=== PATIENT | male | born 1970 | race Caucasian/White ===

== ENCOUNTER → 2016-05-26 | Outpatient (CLI) | payer OTHER ==
[~2016-05-26] VITALS: Ht 177.8 cm; Wt 126.0 kg
[~2016-05-26] MED LIST: CARI250T PO; SIMV10TA2 PO
[2016-05-26 09:14] VITALS: BP 147/88; PULSE 66; Ht 177.8 cm; Wt 126.0 kg
== END | disposition home or self-care (01) ==
LOC: C.NEUR 09:00
PROVIDERS: ATTEND Internal Medicine Pulmonary Disease
DX: G47.33 Obstructive sleep apnea (adult) (pediatric) (principal)

== ENCOUNTER → 2016-07-01 | Outpatient (CLI) | payer OTHER ==
--- NOTE | 2016-07-02 05:45 | PAP/PSG TECHNICIAN REPORT ---
[facility] Food And Beverage Coordinator Polysomnogram Report Study name: None Report date: 07/02/2016 Study date: 07/01/2016 Referring Physician: JACKY RAYA DO, DO Name: JESSICA BLANTON Interpreting Physician: Jacky Raya D.O. Date of : 1970 Food And Beverage Coordinator: Shruti Eng [facility]. Sex: Male Age: 46 StudyType: PSG Weight: 277 lbs Height: 46 years, Height 5' 10" Neck Circum: 19 inches BMI: 39.74 Medications: Simvastatin 20 mg Patient History 46 yr. old male here for a diagnostic sleep study. Patient complains of loud snoring. Patients [place] sleepiness scale score is 0/24. * Patient has had congestion/cold since 06/30/16, he said he cannot breathe from his nose. Parameters Monitored NPSG: E1-M2, E2-M1, Fp1-M2, Fp2-M1, F3-M2, F4-M2, F4-M1, C3-M2, C4-M2, C4-M1, O1-M2, O2-M2, O2-M1, T3-M2, T4-M1, P3-M2, P4-M1, CHIN1, CHIN2, HR, EKG, Legs, PFLOW, SNOR, FLOW, CFLOW, Tidal Volume, THOR, ABDO, SpO2, PLTH, CPRESS, ETCO2 Wave, ETCO2, pH Sleep Architecture Sleep Stages Time at Lights Off 10:02:28 PM STAGES Time (min.) TST (%) Time at Lights On 5:27:58 AM Wake 30.5 -- Total Recording Time (TRT) 445.50 min. N1 24.5 6 Total Sleep Period (TSP) 439.0 min. N2 262.0 63 Total Sleep Time (TST) 415.0min. N3 41.0 10 Awake Time 30.5 min. REM 87.5 21 Wake after Sleep Onset 24.0 min. Sleep Efficiency (SE) 93 % Sleep Onset Latency (ASHOK) 6.5 min. Number of Stage 1 Shifts None Awakenings 27 Stage Changes 107 Number of REM periods 6 REM 87.5 21 REM Latency 90.5 min. NREM 327.5 79 Body Position Analysis Supine Right Left Side Prone Vertical Total Sleep Time (min.) 88.7 209.6 123.8 333.42 0.0 11.0 Total Sleep Time (%) 19% 51% 30% 80 0% 100% Total Sleep Time REM (min.) 0.0 68.0 19.5 None 0.0 0.0 Total Sleep Time NREM (min.) 79.6 141.6 104.3 None 0.0 2.0 Intermittent Wake (min.) 9.2 10.7 1.6 None 0.0 9.0 Total Sleep Period (%) 20% None None None None None Arousals Myoclonus (PLM) * Events Count Index Events Count Index Spontaneous 3 0 Events Awake (PLMW) 49 96.4 Respiratory 13 2.0 Events Asleep w/ Arousal (PLMA) 15 2.2 PLM 13 2 Events Asleep w/o Arousal (PLMS) 184 26.6 Snoring 28 4 Total Asleep 199 28.8 Total 55 8 Total 248 33 Respiratory Analysis * CA OA MA CH H RERA Total Count 0 12 0 0 95 0 107 Index 0.0 1.7 0.0 0 13.7 0 15.5 Mean Duration 0.0 16.4 0.0 0.00 24.3 0.0 23.4 Longest Duration 0.0 22.8 0.0 0.00 0.0 0.0 56.2 Respiratory Event Summary Total Supine ~Supine Right Left Prone REM NREM Apneas Count 12 9 3 1 2 N/A 1 11 Index 1.7 7 1 0.3 1.0 N/A 1 2 Hypopneas (4% Desat) Count 95 57 38 33 5 N/A 13 82 Index 13.7 43.0 7 9.4 2.4 N/A 8.9 15.0 Apneas & All Hypopneas Count 107 66 41 34 7 N/A 14 93 Index 15.5 50 7 10 3 N/A 9.6 17.0 Respiratory Events (Statistical Assistant+All Hyp+RERA) Count 107 66 41 34 7 N/A 14 93 Index 15.5 50 7 9.7 3.4 N/A 9.6 17.0 Respiratory Related Arousal Count 13 66 4 2 2 N/A 1 13 Index 2.0 8 1 1 1 N/A 1 2 Snoring Analysis Supine Right Left Prone REM NREM Total Snore duration 93.2 min Snores count 959 1,612 1,282 N/A 262 3,591 3,853 Snore mean duration 1.5 Sec Snores index 723 461 621 N/A 179.7 657.9 557.1 TST with snoring (%) 22.5% Desaturation Event Summary: Minimum %SpO2 Event Count Mean/Min/Max Duration(sec.) Desaturation Index % Time In Bed > 90 115 25.2 / 6.5 / 60.0 20.9 74.1 86 - 90 12 17.3 / 7.8 / 27.5 6.3 25.8 81 - 85 0 N/A 0.0 0.1 76 - 80 0 N/A 0.0 0.0 71 - 75 0 N/A 0.0 0.0 66 - 70 0 N/A 0.0 0.0 61 - 65 0 N/A 0.0 0.0 56 - 60 0 N/A 0.0 0.0 51 - 55 0 N/A 0.0 0.0 < 50 0 N/A 0.0 0.0 Total REM NREM Awake <50% 0.0 min. 0.0 min. 0.0 min. 0.0 min. 51 - 60% 0.0 min. 0.0 min. 0.0 min. 0.0 min. 61 - 70% 0.0 min. 0.0 min. 0.0 min. 0.0 min. 71 - 80% 0.0 min. 0.0 min. 0.0 min. 0.0 min. 81 - 90% 115.4 min. 13.4 min. 97.6 min. 4.5 min. 91 - 100% 330.0 min. 74.1 min. 229.9 min. 25.9 min. Average 92 92 91 92 Minimum SpO2 84 87 84 85 Desaturation Event Index 15.6 8.9 17.4 15.7 # Desat. Events below 89% 40 4 34 2 Time(%) with Saturation below 89% 2.1 0.3 1.5 0.3 Time(min.) with Saturation below 89% 9.2 1.1 6.6 1.5 Time (mins) REM (mins) NREM (mins) % of TST SpO2 Below 90% 93 10 N83 8.8 SpO2 Below 88% 14 0 0 0 Heart Rate Analysis Min (bpm) Max (bpm) Average (bpm) Awake 54 90 65 NREM 49 87 60 REM 50 71 60 Overall 49 87 60 Supplemental O2 Values Minimum O2 level: None Value Start Time End Time Food And Beverage Coordinator Comments Mr. Blanton slept in the right, left, and supine positions. No cardiac arrhythmia or PLMs noted. No bruxism noted. Snoring was noted and scored as a 4 on a scale of 0 through 5. (0=no snoring, 5=snoring loud enough to be heard through a closed door or down the [address] way) Mr. Blanton did not wake to use the restroom during the night. Mr. Blanton stated, "That was a long night" The final report will be interpreted and signed by a sleep physician. The completed physician report will then be placed in the patient medical record. Therapy (cm H2O) 0 TIB (min.) 445.5 TST (min.) 415.0 Sleep Onset (min.) 6.5 REM Onset From Sleep (min.) 90.5 Sleep Efficiency % 93 Wakefulness (%) 7 Wakefulness (min.) 30.5 NREM 1 (%) 6 NREM 1 (min.) 24.5 NREM 2 (%) 63 NREM 2 (min.) 262.0 NREM 3 (%) 10 NREM 3 (min.) 41.0 REM (%) 21 REM (min.) 87.5 # Arousals 55 Arousal Index 8 # Snore 3,853 Snore Index 557.1 AHI 15.5 AHI Supine 50 AHI Non-Supine 7 NREM AHI 17.0 REM AHI 9.6 RDI 15.5 # Obstructive Apnea 12 # Central Apnea 0 # Mixed Apnea 0 # Hypopneas 95 RERAs 0 Total Respiratory Events 110 Time Below SpO2 89% (min.) 7.8 Mean NREM SpO2 (%) 91 Mean REM SpO2 (%) 92 Mean Sleep SpO2 (%) 92 Min NREM SpO2 (%) 84 Min REM SpO2 (%) 87 Position Supine (min.) 88.7 Position Non-supine (min.) 335.4 LM Index Sleep 28.8 LM Index NREM 35.5 LM Index REM 3.4 Mean Heart Rate (bpm) 60 Min Heart Rate (bpm) 49
--- NOTE | 2016-07-05 09:28 | POLYSOMNOGRAPH REPORT ---
REFERRING PHYSICIAN: Dr. Del Real CLINICAL DATA: The patient is a 46-year-old male with a BMI elevated at 39.74. He is referred by Dr. Del Real. The patient has snoring, disturbed nocturnal sleep, and hypertension. An in-lab overnight sleep study was performed. Hypopneas were scored according to the 4% Rule. SLEEP ARCHITECTURE: The total sleep period was 439.0 minutes. Total sleep time was 415.0 minutes. Sleep efficiency was normal at 93%. The sleep latency was 6.5 minutes. The REM latency was normal at 90.5 minutes. Wake after sleep onset was 24.0 minutes. Sleep consisted of stage N1 of 6%, stage N2 of 63%, stage N3 of 10%, and REM sleep 21%. AROUSAL DATA: The patient had a total of 55 arousals including 3 spontaneous arousals, 13 respiratory arousals, 13 PLM arousals, and 28 snoring arousals. The arousal index was 8 events per hour. PERIODIC LIMB MOVEMENTS DATA: The patient had a total of 199 periodic limb movements of sleep for a PLM index of 28.8. There were only 15 periodic limb movements with arousals for a PLM arousal index of only 2.2 events per hour. ELECTROCARDIOGRAM: The underlying cardiac rhythm was normal sinus. No arrhythmias were observed. The minimum heart rate was 49 and the maximum was 90. The average heart rate was 60. RESPIRATORY DATA: The patient had a total of 107 respiratory events including 12 obstructive apneas and 95 hypopneas. The longest apnea was 22.8 seconds. The apnea hypopnea index was moderately elevated at 15.5 events per hour. OXIMETRY DATA: The minimum saturation for the entire night was 84%. Most of the night his saturations were above 90%. There was a total of 115.4 minutes with saturations between 81% and 90%. There was a total of 14 minutes with saturations less than 88%. SPEECH AND LANGUAGE TUTOR COMMENTS: The patient slept in the right, left, and supine positions. No cardiac arrhythmias. No bruxism. Snoring was noted and scored as a 4 on a scale of 0 through 5. IMPRESSIONS: 1. Obstructive sleep apnea -- moderate. 2. Periodic limb movement disorder. COMMENTS: The patient had a normal sleep efficiency. Sleep architecture was normal. He did have a moderate amount of sleep apnea as noted above. There were oxygen desaturations associated with this. The patient has a history of hypertension and in light of this treatment would be advised. He has a modest number of limb movements, but with few arousals. RECOMMENDATIONS: 1. It is advised that the patient be given a trial of nasal CPAP. 2. The patient has a significantly elevated body mass index of 39.74. A weight reduction program is advised. 3. It is suggested that the patient avoid sleeping in the supine position. 4. Further suggestions may be made following the trial of nasal CPAP. MTDD
== END | disposition home or self-care (01) ==
LOC: C.NEUR 20:00
PROVIDERS: ATTEND Internal Medicine Pulmonary Disease
DX: G47.33 Obstructive sleep apnea (adult) (pediatric) (principal)

== ENCOUNTER → 2016-07-07 | Outpatient (CLI) | payer OTHER ==
[~2016-07-07] VITALS: Ht 177.8 cm; Wt 124.3 kg
[2016-07-07 09:02] VITALS: BP 120/79; PULSE 80; Ht 177.8 cm; Wt 124.3 kg
== END | disposition home or self-care (01) ==
LOC: C.NEUR 08:48
PROVIDERS: ATTEND Internal Medicine Pulmonary Disease
DX: G47.33 Obstructive sleep apnea (adult) (pediatric) (principal)

== ENCOUNTER → 2017-07-12 | Outpatient (CLI) | payer OTHER ==
[2017-07-12 12:22] LABS: BASO % 0.5 %; BASO ABS # 0.02 K/uL (0-0.2); EOS % 2.6 %; HEMATOCRIT 40.7 % (42-52); LYMPH % 47.7 %; LYMPH ABS # 1.86 K/uL (1.2-3.4); MEAN CORPUSCULAR HEMOGLOBIN 32.3 pg (25-34); MEAN CORPUSCULAR HGB CONC 34.4 g/dl (32-36); MEAN PLATELET VOLUME 10.8 fL (7.4-10.4); MONO % 8.2 %; MONO ABS # 0.32 K/uL (0.11-0.59); PLATELET COUNT 264 K/uL (130-400); RED CELL DISTRIBUTION WIDTH CV 12.9 % (11.5-14.5); RED CELL DISTRIBUTION WIDTH SD 44.7 fL (36.4-46.3)
[2017-07-12 13:19] LABS: ALBUMIN 3.9 gm/dl (3.4-5.0); ALT/SGPT 17 U/L (12-78); AST/SGOT 13 U/L (15-37); BLOOD UREA NITROGEN 15 mg/dl (7-18); CARBON DIOXIDE 27 mmol/L (21-32); CHOLESTEROL 184 mg/dl (0-200); CREATININE 0.87 mg/dl (0.60-1.40); GLUCOSE 95 mg/dl (70-99); POTASSIUM 4.1 mmol/L (3.5-5.1); SODIUM 137 mmol/L (136-145)
[2017-07-12 13:21] LABS: ALKALINE PHOSPHATASE 74 U/L (45-117); LDL CHOLESTEROL CALCULATED 86 mg/dl
== END | disposition home or self-care (01) ==
LOC: C.LABBFT 07:54
PROVIDERS: ATTEND Internal Medicine
DX: E78.00 Pure hypercholesterolemia, unspecified (principal)